=== PATIENT | female | born 1960 | race African-American/Black ===

== ENCOUNTER 2022-05-25 14:35 | Emergency (ER) | payer OTHER ==
[2022-05-25 14:59] VITALS: BP 132/76; PULSE 70; RESP 18; TEMP 98.1; BMI 32.3
[2022-05-25 18:51] LABS: EPI CELLS 5 /uL (0-25.1); HYALINE CASTS 0 /uL (0-3.1); URINE APPEARANCE CLEAR; URINE BACTERIA 10 /uL (0-1359); URINE BILIRUBIN NEGATIVE (NEGATIVE); URINE COLOR YELLOW; URINE GLUCOSE (UA) NEGATIVE (NEGATIVE); URINE KETONE NEGATIVE (NEGATIVE); URINE LEUK ESTERASE 1+ (NEGATIVE); URINE NITRITE NEGATIVE (NEGATIVE); URINE PROTEIN NEGATIVE (NEGATIVE); URINE RBC 8 /uL (0-23.9); URINE UROBILINOGEN 0.2 mg/dL (0.2-1.0); URINE WBC 19 /uL (0-25.8)
[2022-05-25 19:42] LABS: BASO % 0.3 % (0-2.0); EOS % 2.3 % (0-4.5); HEMATOCRIT 46.4 % (32.4-45.2); HEMOGLOBIN 14.4 GM/dL (10.7-15.3); LYMPH % 46.5 % (8-40); MCH 25.7 pg (25.7-33.7); MCHC 31.1 g/dl (32.0-36.0); MEAN CELL VOLUME 82.8 fl (80-96); MEAN PLT VOLUME 11.6 fl (7.5-11.1); MONO % 11.6 % (3.8-10.2); NEUT % 39.3 % (42.8-82.8); PLATELET COUNT 174 10^3/uL (134-434); RDW 15.7 % (11.6-15.6); WHITE BLOOD COUNT 4.1 K/mm3 (4.0-10.0)
[2022-05-25 20:14] LABS: CALCIUM 9.5 mg/dL (8.5-10.1)
[2022-05-25 20:15] LABS: BLOOD UREA NITROGEN 11.1 mg/dL (7-18)
[2022-05-25 20:18] LABS: CREATININE 0.7 mg/dL (0.55-1.3)
[2022-05-25 20:19] LABS: BILIRUBIN,TOTAL 0.5 mg/dL (0.2-1); TOT PROT 7.8 g/dl (6.4-8.2)
== END 2022-05-25 22:11 | disposition home or self-care (01) ==
LOC: JER 14:35
DX: N39.0 Urinary tract infection, site not specified (principal)
CPT/HCPCS: 36415; 74177-TC; 80053; 81003; 83690; 85025; 87077; 87086; 99285-25; Q9967

== ENCOUNTER 2024-08-16 03:51 | Observation (INO) | payer OTHER ==
[2024-08-16 04:02] VITALS: BMI 32.3
[2024-08-16] MEDS ORDERED: ACETAMINOPHEN INJECTION 100 ML ONE ×2 (04:48→22:47)
[2024-08-16] MEDS ORDERED: ONDANSETRON 4 MG/2 ML VIAL ONE ×2 (04:49→09:14)
[2024-08-16] MEDS ORDERED: FAMOTIDINE 10 MG/ML VIAL IVPB ONE (04:49)
[2024-08-16] MEDS: ACETAMINOPHEN 1000 MG/100 ML BAG IVPB ONE ×2 (05:10→22:51)
[2024-08-16] MEDS: SODIUM CHLORIDE 0.9% 500 ML INFUS.BAG IV ONE (05:10)
[2024-08-16] MEDS: FAMOTIDINE 20 MG/50 ML IVPB 20 MG/50 ML MG IVPB ONE (05:11)
[2024-08-16] MEDS: ONDANSETRON 4 MG/2 ML VIAL IVPUSH ONE ×2 (05:11→09:26)
[2024-08-16] MEDS ORDERED: FUROSEMIDE 40 MG/4 ML INJECTABLE VIAL ONE (05:30)
[2024-08-16] MEDS: FUROSEMIDE 40 MG/4 ML INJECTABLE VIAL IVPUSH ONE (05:34)
[2024-08-16 06:34] LABS: BASO % 0.3 % (0-2.0); EOS % 0.3 % (0-4.5); HEMATOCRIT 42.8 % (32.4-45.2); HEMOGLOBIN 13.6 GM/dL (10.7-15.3); LYMPH % 18.7 % (8-40); MCH 26.6 pg (25.7-33.7); MCHC 31.8 g/dl (32.0-36.0); MEAN CELL VOLUME 83.8 fl (80-96); MEAN PLT VOLUME 10.3 fl (7.5-11.1); MONO % 5.2 % (3.8-10.2); NEUT % 75.5 % (42.8-82.8); PLATELET COUNT 158 10^3/uL (134-434); RDW 15.5 % (11.6-15.6); WHITE BLOOD COUNT 6.5 K/mm3 (4.0-10.0)
[2024-08-16] MEDS ORDERED: MORPHINE SULFATE 2 MG/ML SYRINGE ONE (06:34)
[2024-08-16] MEDS: morphine CARPU-JECT 2 MG/1 ML DISP.SYRIN IVPUSH ONE (06:38)
[2024-08-16 07:16] LABS: ALBUMIN 3.9 g/dl (3.4-5.0); BLOOD UREA NITROGEN 11.3 mg/dL (7-18); CALCIUM 9.1 mg/dL (8.5-10.1)
[2024-08-16 07:20] LABS: CREATININE 0.7 mg/dL (0.55-1.3)
[2024-08-16 07:22] LABS: BILIRUBIN,TOTAL 0.3 mg/dL (0.2-1); TOT PROT 7.6 g/dl (6.4-8.2)
[2024-08-16 07:25] LABS: N-TERMINAL BNP 97.9 pg/ml (5-125)
[2024-08-16] MEDS ORDERED: MAG HYDROX/AL HYDROX/SIMETH 30 ML UNIT-DOSE CUP ONE (07:58)
[2024-08-16] MEDS ORDERED: KETOROLAC TROMETHAMINE 15 MG/ML VIAL ONE ×2 (08:29→14:59)
[2024-08-16] MEDS: ASPIRIN 81 MG CHEWABLE TABLETS PO ONE (08:37)
[2024-08-16] MEDS: MAG HYDROX/AL HYDROX/SIMETH 30 ML UNIT-DOSE CUP PO ONE (08:37)
[2024-08-16] MEDS: KETOROLAC TROMETHAMINE 15 MG/ML VIAL IVPUSH ONE ×2 (08:37→15:15)
[2024-08-16] MEDS ORDERED: SIMETHICONE 80 MG TAB.CHEW (FP) ONE ×2 (09:16→16:49)
[2024-08-16] MEDS: SIMETHICONE 80 MG TAB.CHEW (FP) PO ONE ×2 (09:21→16:55)
[2024-08-16] MEDS ORDERED: MORPHINE SULFATE 2 MG/ML SYRINGE IVPUSH PRN (13:42)
[2024-08-16] MEDS ORDERED: RIVAROXABAN 15 MG TABLET PO SCH (18:00)
[2024-08-16] MEDS ORDERED: ENOXAPARIN NA (PORCINE) 80 MG/0.8 ML DISP.SYRIN SQ ONE (21:07)
[2024-08-16] MEDS: ENOXAPARIN NA (PORCINE) 80 MG/0.8 ML DISP.SYRIN SQ SCH (21:09)
[2024-08-17 06:33] LABS: BASO % 0.8 % (0-2.0); EOS % 0.3 % (0-4.5); HEMATOCRIT 43.1 % (32.4-45.2); LYMPH % 16.2 % (8-40); MCH 27.2 pg (25.7-33.7); MCHC 32.6 g/dl (32.0-36.0); MEAN CELL VOLUME 83.6 fl (80-96); MEAN PLT VOLUME 10.3 fl (7.5-11.1); MONO % 9.6 % (3.8-10.2); NEUT % 73.1 % (42.8-82.8); PLATELET COUNT 176 10^3/uL (134-434); RBC 5.16 M/mm3 (3.60-5.2); RDW 15.9 % (11.6-15.6); WHITE BLOOD COUNT 7.7 K/mm3 (4.0-10.0)
[2024-08-17 06:46] LABS: POTASSIUM 3.7 mmol/L (3.5-5.1)
[2024-08-17 06:49] LABS: ALBUMIN 3.8 g/dl (3.4-5.0); BLOOD UREA NITROGEN 14.6 mg/dL (7-18); CALCIUM 9.2 mg/dL (8.5-10.1)
[2024-08-17 06:53] LABS: CREATININE 0.9 mg/dL (0.55-1.3)
[2024-08-17 06:54] LABS: BILIRUBIN,TOTAL 0.9 mg/dL (0.2-1); TOT PROT 7.6 g/dl (6.4-8.2)
[2024-08-17] MEDS ORDERED: ASPIRIN 81 MG CHEWABLE TABLETS ONE (09:06)
[2024-08-17] MEDS ORDERED: FUROSEMIDE 40 MG/4 ML INJECTABLE VIAL ONE (09:06)
[2024-08-17] MEDS ORDERED: ENOXAPARIN NA (PORCINE) 80 MG/0.8 ML DISP.SYRIN SQ ONE (09:06)
[2024-08-17] MEDS ORDERED: PANTOPRAZOLE 40 MG TABLET PO ONE (09:06)
[2024-08-17] MEDS ORDERED: amLODIPine BESYLATE 10 MG TABLET (FP) ONE (09:12)
[2024-08-17] MEDS: PANTOPRAZOLE 40 MG TABLET PO SCH (09:23)
[2024-08-17] MEDS: amLODIPine BESYLATE 10 MG TABLET (FP) PO SCH (09:23)
[2024-08-17] MEDS: ASPIRIN 81 MG CHEWABLE TABLETS PO SCH (09:23)
[2024-08-17] MEDS: FUROSEMIDE 40 MG/4 ML INJECTABLE VIAL IVPUSH SCH (09:24)
[2024-08-17] MEDS: VALSARTAN 160 MG TABLET PO SCH (09:24)
[2024-08-17 10:10] VITALS: BP 134/90; PULSE 85; RESP 16; TEMP 98
== END 2024-08-17 14:56 | disposition home or self-care (01) ==
LOC: JER 03:51 → UNDOADMOB 08:03 → JERBED 08:03 → INTOOBSV 08:03 → JERBED 08-17 09:17
PROVIDERS: ADMIT Internal Medicine; ATTEND Internal Medicine
PROC: 3E033NZ Introduction of Analgesics, Hypnotics, Sedatives into Peripheral Vein, Percutaneous Approach (ICD-10-PCS; principal; 2024-08-17)
PROC: 3E023GC Introduction of Other Therapeutic Substance into Muscle, Percutaneous Approach (ICD-10-PCS; 2024-08-17)
PROC: 3E033GC Introduction of Other Therapeutic Substance into Peripheral Vein, Percutaneous Approach (ICD-10-PCS; 2024-08-17)
PROC: 3E0333Z Introduction of Anti-inflammatory into Peripheral Vein, Percutaneous Approach (ICD-10-PCS; 2024-08-17)
DX: K80.20 Calculus of gallbladder without cholecystitis without obstruction (principal); K83.8 Other specified diseases of biliary tract; K86.89 Other specified diseases of pancreas; I11.0 Hypertensive heart disease with heart failure; F41.9 Anxiety disorder, unspecified; K76.0 Fatty (change of) liver, not elsewhere classified; I49.3 Ventricular premature depolarization; Z79.01 Long term (current) use of anticoagulants
CPT/HCPCS: 36415; 71045-TC-FY; 71260-TC; 74177-TC; 76705-TC; 80053; 83690; 83880; 84484; 85025; 93005; 93010; 93306-TC; 96372; 96374; 96375; 96376; 99285-25; G0378; J0131; Q9967